=== PATIENT | female | born 1985 | race Caucasian/White ===

== ENCOUNTER → 2017-07-30 | Outpatient (CLI) | payer OTHER ==
--- NOTE | 2017-07-30 10:35 | NM ---
EXAMINATION TYPE: NM hepatobiliary w EF DATE OF EXAM: 07/30/2017 COMPARISON: NONE HISTORY: Right lower quadrant pain TECHNIQUE: After the intravenous administration of 5.01 mCi Tc 99m Mebrofenin hepatobiliary scintigra phy is performed. Immediate images post injection. FINDINGS: There is satisfactory initial accumulation of tracer by the liver. The gallbladder is visualized wit hin 4 minutes. The small bowel activity is noted within 34 minutes. At one hour 8 ounces of oral en sure plus is given to mimic CCK and gallbladder ejection fraction is calculated at 46 %, in the raf l range. Therefore there is no scintigraphic evidence of cystic or common bile duct obstruction to s uggest acute cholecystitis or gallbladder dyskinesia. IMPRESSION: Exam is within normal limits.
== END | disposition home or self-care (01) ==
LOC: RADNMMAIN 06:33
PROVIDERS: ATTEND Family Medicine
DX: R10.31 Right lower quadrant pain (principal)
CPT/HCPCS: 78226; A9537

== ENCOUNTER 2020-10-16 09:44 | Emergency (ER) | payer OTHER ==
[2020-10-16 10:04] VITALS: BP 136/89; PULSE 84; RESP 18; TEMP 98.1
--- NOTE | 2020-10-16 10:33 | ED ---
Animal Bite HPI - General Chief Complaint: Animal Bite Stated Complaint: cat bite Time Seen by Provider: 10/16/20 10:26 Source: patient, family Mode of arrival: ambulatory Limitations: no limitations - History of Present Illness Initial Comments: Patient is a 35-year-old female presenting to the emergency department with complaints of cat bite wound to her left ankle. She states this happened about 1 week ago, over the past few days she's had some swelling and some drainage to the area. She did contact her primary care physician's office but cannot get in until next week. She denies any fevers or chills, no nausea or vomiting. She wanted to come in for evaluation. She is no further complaints. - Related Data Home Medications Medication Instructions Recorded Confirmed Spironolactone 50 mg PO DAILY 09/21/15 09/21/15 metFORMIN HCL [Metformin HCl ER] 500 mg PO DAILY 09/21/15 09/21/15 Previous Rx's Medication Instructions Recorded Permethrin 5% Cream [Elimite] 1 applic TOPICAL ONCE #60 cream..g. 09/21/15 methylPREDNISolone [Medrol Dose 4 mg PO DIRECTED #1 pack 09/21/15 Pack] Cephalexin [Keflex] 500 mg PO Q6HR 5 Days #20 cap 10/16/20 Allergies Allergy/AdvReac Type Severity Reaction Status Date / Time No Known Allergies Allergy Verified 10/16/20 10:03 Review of Systems ROS Statement: Those systems with pertinent positive or pertinent negative responses have been documented in the HPI. ROS Other: All systems not noted in ROS Statement are negative. Past Medical History Past Medical History: No Reported History Additional Past Medical History / Comment(s): POLYCYSTIC OVARIAN DISEASE History of Any Multi-Drug Resistant Organisms: None Reported Past Surgical History: No Surgical Hx Reported Past Psychological History: Depression Smoking Status: Current every day smoker Past Alcohol Use History: Rare Past Drug Use History: None Reported General Exam - General Exam Comments Initial Comments: GENERAL: Patient is well-developed and well-nourished. Patient is nontoxic and in no acute distress. HEAD: Atraumatic, normocephalic. EYES: Pupils equal round and reactive to light, extraocular movements intact, sclera anicteric, conjunctiva are normal. Eyelids were unremarkable. LUNGS: Unlabored respirations. Breath sounds clear to auscultation bilaterally and equal. No wheezes rales or rhonchi. HEART: Regular rate and rhythm without murmurs, rubs or gallops. ABDOMEN: Soft, nontender, normoactive bowel sounds. MUSCULOSKELETAL: Normal extremities with adequate strength and normal range of motion, no pitting or edema. No clubbing or cyanosis. NEUROLOGICAL: Patient is alert and oriented x 3. SKIN: Warm, Dry, normal turgor. Patient has 2 single puncture wounds to the left lower ankle from cat bite, there is some mild erythema and tenderness to the area, there is some mild drainage as well, no spreading erythema. Limitations: no limitations Course Vital Signs 10/16/20 09:59 Temperature 98.1 F Pulse Rate 84 Respiratory 18 Rate Blood Pressure 136/89 O2 Sat by Pulse 98 Oximetry Medical Decision Making - Medical Decision Making Patient is a 35-year-old female here with 2 Bite wound on her left lower ankle that happened 1 week ago. It is mild erythematous, painful, some mild drainage. No fevers, no nausea or vomiting, her vitals are stable. I will start her on antibiotics. She can follow-up with her primary care physician. She is agreeable to this plan of care, return parameters were discussed with her and she verbalized understanding. Case discussed with Dr. Greene. Disposition Clinical Impression: Cat bite of left ankle Disposition: HOME SELF-CARE Condition: Stable Instructions (If sedation given, give patient instructions): Animal Bite (ED) Additional Instructions: Please return to the Emergency Department if symptoms worsen or any other concerns. Take antibiotics as prescribed. Follow-up with your primary care physician as needed. Prescriptions: Cephalexin [Keflex] 500 mg PO Q6HR 5 Days #20 cap Is patient prescribed a controlled substance at d/c from ED?: No Referrals: Ike Lala MD [Primary Care Provider] - 1-2 days Time of Disposition: 10:32
== END 2020-10-16 11:05 | disposition home or self-care (01) ==
LOC: EC 09:44
DX: S91.032A Puncture wound without foreign body, left ankle, initial encounter (principal); F32.9 Major depressive disorder, single episode, unspecified; E28.2 Polycystic ovarian syndrome; F17.200 Nicotine dependence, unspecified, uncomplicated; W55.01XA Bitten by cat, initial encounter
CPT/HCPCS: 99283

== ENCOUNTER → 2022-01-22 | Outpatient (CLI) | payer OTHER ==
--- NOTE | 2022-01-22 12:53 | MR ---
EXAMINATION TYPE: MR lumbar spine wo con DATE OF EXAM: 01/22/2022 COMPARISON: None HISTORY: Low back pain TECHNIQUE: Multiplanar, multisequence images of the lumbar spine were acquired without IV contrast. L1-L2: Normal disc appearance without desiccation. No herniation, protrusion or disc bulging. No ca nal stenosis is present. Foramina are patent bilaterally. L2-L3: Normal disc appearance without desiccation. No herniation, protrusion or disc bulging. No ca nal stenosis is present. Foramina are patent bilaterally. L3-L4: Posterior broad-based disc bulge causes anterior mass effect on the thecal sac in the central, right paracentral location. Circumferential extension endplate causes some foraminal encroachment in ferior aspect of the foramen on the right. No significant spinal stenosis. L4-L5: Posterior disc herniation is present central, left paracentral location causing mass effect on the thecal sac. There is facet arthropathy noted. Circumferential extension of endplate disc complex encroaches on the inferior aspect of the neural foramen on the right. There is mild to moderate spin al stenosis. Vacuum disc phenomenon is present. L5-S1: Circumferential extension endplate disc complex causes bilateral foraminal encroachment. Poste rior broad-based disc bulge contacts the anterior thecal sac, possibly the S1 nerve roots. There is f acet arthropathy with hypertrophy ligamentum flavum. No significant spinal stenosis. Vacuum disc phen omenon is present. Lumbar segments are intact. No paraspinal masses are identified. Conus medullaris has a normal appe arance. Loss of disc height and signal is present at L3-4, L4-5 and L5-S1, there is mitral listhesis and endplate discogenic marrow signal change. Redundancy of the nerve roots is noted distal to the L4 -5 level. Lumbar vertebral bodies show preserved height and alignment. IMPRESSION: Degenerative disc disease as described, disc herniation at L4-5 causes some spinal stenosis
== END | disposition home or self-care (01) ==
LOC: RADMRIMAIN 10:15
PROVIDERS: ATTEND Physician Assistant
DX: M51.16 Intervertebral disc disorders with radiculopathy, lumbar region (principal); M48.061 Spinal stenosis, lumbar region without neurogenic claudication
CPT/HCPCS: 72148

== ENCOUNTER → 2022-02-24 | Outpatient (CLI) | payer OTHER ==
[2022-02-24 08:34] VITALS: BP 124/70; PULSE 91; RESP 18; TEMP 98.6
--- NOTE | 2022-02-24 15:32 | P.PAINPG ---
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 Pt states pain level is at 7/10 in intensity, constant, localized in the lower lumbar spine, achy in character w shooting pain towards the BLEs. Pain is provoked by standing, bending, twisting Pain is alleviated by PT in 2020, home exercise regimen daily, alternates heat & ice, medications (Flexeril, Neurontin), reclining, repositioning and rest. PMH: PCOS, MDD, HTN, CAD, NIDDM, Hypothyroidism PSH: Denies SH: Daily tobacco use, Rare ETOH use, No illicit drug use. FH: Non contributory All: NKDA Meds: See list REVIEW OF ORGAN SYSTEMS: CONSTITUTIONAL: No fevers or chills. No recent weight loss. NEUROLOGICAL: + numbness and tingling along the distal extremities. No seizure disorders or headaches. MUSCULOSKELETAL: + pain PSYCHIATRIC: Denies current depression or suicidal thoughts. Physical Examinations : Constitutional : Cooperative , not in acute distress . Neurologic : Cranial nerve II to XII intact. No focal neurological deficits. Psychiatric : alert & oriented x 3. Matching mood & appropriate affect. Judgment & insight intact. Musculoskeletal : Cervical Spine Motor strength in the deltoid and biceps: Normal right side. Normal Left side Motor strength biceps and the wrist extensors: Normal right side . Normal left side Motor strength in the triceps muscle: Normal right side. Normal left side Deep tendon reflexes: Normal at the biceps. Normal at Brachioradialis. Normal at triceps Vertebral body tenderness to deep palpation over Cervical facet loading test: positive bilaterally Spurling test: positive bilaterally Neck distraction test: positive bilaterally Barron sign: positive bilaterally Lumbar spine Motor strength lower extremities ,thigh and legs 5/5 Right side , 5/5 Left side Deep tendon reflexes : Normal Knee Jerk. Normal Ankle Jerk Vertebral body tenderness over L4 Lumbar facet Loading Test: positive Right / positive Left Range of motion of the lumbar spine Flexion 30 degrees, extension 10 degrees Straight Leg Raise test: Left/ Right positive at degree Ileana test: positive right / positive left. Severe tenderness over the Sacroiliac joint on the Right / Left sides Gaenslen test: positive bilaterally Seated flexion test: positive bilaterally. Sacral spine : Severe tenderness over the Sacroiliac joint: right side / left side Range of motion: Flexion of the lumbar spine <60 degrees Range of motion: Extension of the lumbar spine <20 degrees Gaenslen's Test positive Chi's Test positive Ileana test: positive right side / left side Thigh Thrust Test Sacral Thrust Test Imaging: MRI without contrast of the lumbar spine from 01/22/22 reviewed Assessment/ Plan : Lumbar disc bulge, lumbar spondylolisthesis Recommendation of L Paramedian TAMMY L4-L5. May need a series of injections, up to 3 within a 6 mo period, for optimal pain relief. Risks, benefits of procedure discussed and patient verbalized understanding. Admits to aspirin or anti- coagulant use or medical history of diabetes. Protocol for discontinuation/ continuation of medications sveta procedure discussed. All questions answered. I have spent greater than 30 minutes on patient care today. Dr Gayle was available by phone for the evaluation of this patient. The time was used to review the medical records including relevant urine studies and Prescription history (MAPs), review of the available imaging, evaluation and examination of the patient, coordination of care with the medical staff and if applicable referring physicians, as well as creation of the medical record - Pain Location Lower Back Non-Pharmacological Interventions: Heat, Home Exercise, Ice, Inactivity, Physical Therapy, Position/Reposition, Stretching Pharmacological Interventions: PRN Medication, Scheduled Medication PQRS Narrative: Smoking Status Current every day smoker Home Medications: Ambulatory Orders Spironolactone 50 mg PO DAILY 09/21/15 metFORMIN HCL [Metformin HCl ER] 500 mg PO DAILY 09/21/15 Cyclobenzaprine [Flexeril] 10 mg PO HS 02/24/22 Gabapentin 600 mg PO BID 02/24/22 Levothyroxine Sodium [Synthroid] 50 mcg PO DAILY 02/24/22 Omeprazole [PriLOSEC] 40 mg PO DAILY 02/24/22 QUEtiapine [SEROquel] 50 mg PO HS 02/24/22 lisinopriL [Prinivil] 20 mg PO DAILY 02/24/22 norgestimate-ethinyl estradioL [Beverley 0.25-0.035 mg Tablet] 1 each PO DAILY 02/24/22 Controlled Substance Measures - Controlled Substance Measures Is patient prescribed a controlled substance at discharge?: No
== END ==
LOC: PNWHC3 07:20
PROVIDERS: ATTEND Specialist
DX: M43.16 Spondylolisthesis, lumbar region (principal); Z79.01 Long term (current) use of anticoagulants; E11.9 Type 2 diabetes mellitus without complications; Z79.84 Long term (current) use of oral hypoglycemic drugs; F17.200 Nicotine dependence, unspecified, uncomplicated
CPT/HCPCS: 99211

== ENCOUNTER 2023-02-02 06:17 | Day surgery (SDC) | payer OTHER ==
[2023-01-29 13:02] VITALS: BMI 41.6
[~2023-02-02 06:17] MED LIST: LACTATED RINGERS 1,000 ML IV SCH
[2023-02-02] MEDS ORDERED: MIDAZOLAM 2 MG/2 ML VIAL IVP ONE (06:56)
[2023-02-02] MEDS ORDERED: INSULIN ASPART (NovoLOG) 100 UNIT/ML VIAL SQ ONE (06:56)
[2023-02-02 07:01] LABS: Glucose,Whole Blood 350 mg/dL (70-110)
[2023-02-02 07:02] VITALS: TEMP 97
[2023-02-02] MEDS ORDERED: LIDOCAINE 1% INJ 10MG/ML (20 ML MDV) ONE (07:05)
[2023-02-02] MEDS ORDERED: PROPOFOL 10 MG/ML 20 ML VIAL IV ONE (07:05)
--- NOTE | 2023-02-02 07:11 | P.GSHP ---
History of Present Illness H&P Date: 02/02/23 CHIEF COMPLAINT: GERD HISTORY OF PRESENT ILLNESS: The patient is a 37-year-old female who presents reports gastroesophageal reflux disease. Upper endoscopy was offered for further evaluation and management. PAST MEDICAL HISTORY: Please see list. PAST SURGICAL HISTORY: Please see list. MEDICATIONS: Please see list. ALLERGIES: Please see list. SOCIAL HISTORY: No illicit drug use FAMILY HISTORY: No reports of Crohn disease or ulcerative colitis. REVIEW OF ORGAN SYSTEMS: CONSTITUTIONAL: No reports of fevers or chills. GI: Denies any blood in stools or constipation. PHYSICAL EXAM: VITAL SIGNS: Stable GENERAL: Well-developed and pleasant in no acute distress. HEENT: No scleral icterus. Extraocular movements grossly intact. Moist buccal mucosa. NECK: Supple without lymphadenopathy. CHEST: Unlabored respirations. Equal bilateral excursions. CARDIOVASCULAR: Regular rate and rhythm. Distal 2+ pulses. ABDOMEN: Soft, nondistended. MUSCULOSKELETAL: No clubbing, cyanosis, or edema. ASSESSMENT: 1. Gastroesophageal reflux disease PLAN: 1. Recommend proceeding with an upper endoscopy Past Medical History Past Medical History: Diabetes Mellitus, GERD/Reflux, Hyperlipidemia, Hypertension, Thyroid Disorder Additional Past Medical History / Comment(s): POLYCYSTIC OVARIAN DISEASE. herniated discs. SOB with activity. History of Any Multi-Drug Resistant Organisms: None Reported Past Surgical History: No Surgical Hx Reported Past Anesthesia/Blood Transfusion Reactions: No Reported Reaction Additional Past Anesthesia/Blood Transfusion Reaction / Comment(s): Has never had anesthesia. NO BLOOD TRANSFUSIONS Past Psychological History: Depression Additional Psychological History / Comment(s): . Smoking Status: Current every day smoker Past Alcohol Use History: Rare Additional Past Alcohol Use History / Comment(s): Smokes 1 1/2ppd since age late 20s started at 18yrs Past Drug Use History: Marijuana Additional Drug Use History / Comment(s): Marijuana use daily. Aware no use 24 hrs prior to procedure. - Past Family History Father Family Medical History: No Reported History Medications and Allergies Home Medications Medication Instructions Recorded Confirmed Type Spironolactone 100 mg PO BID 09/21/15 02/02/23 History metFORMIN HCL [Metformin HCl ER] 500 mg PO TID 09/21/15 02/02/23 History Cyclobenzaprine [Flexeril] 10 mg PO BID 02/24/22 02/02/23 History Gabapentin 400 mg PO BID 02/24/22 02/02/23 History Levothyroxine Sodium [Synthroid] 50 mcg PO DAILY 02/24/22 02/02/23 History Omeprazole [PriLOSEC] 40 mg PO BID 02/24/22 02/02/23 History norgestimate-ethinyl estradioL 1 each PO DAILY 02/24/22 02/02/23 History [Beverley 0.25-0.035 mg Tablet] Ergocalciferol [Vitamin D2 (1250 50,000 unit PO Q30D 10/22/22 02/02/23 History Mcg = 80699 Iu)] Fluticasone Propion/Salmeterol 1 puff INHALATION BID 01/29/23 02/02/23 History [Advair Hfa 115-21 Mcg Inhaler] OLANZapine [ZyPREXA] 15 mg PO HS 01/29/23 02/02/23 History Semaglutide [Ozempic] 0.25 mg SQ Q7D 01/29/23 02/02/23 History lisinopriL 40 mg PO DAILY 01/29/23 02/02/23 History oxyCODONE HCL/ACETAMINOPHEN 1 tab PO TID PRN 01/29/23 02/02/23 History [oxyCODONE HCL/ACETAMINOPHEN 7.5-325] Allergies Allergy/AdvReac Type Severity Reaction Status Date / Time No Known Allergies Allergy Verified 02/02/23 06:21 Surgical - Exam Vital Signs Temp Pulse Resp BP Pulse Ox 97 F L 121 H 18 137/82 93 L 02/02/23 06:41 02/02/23 06:41 02/02/23 06:41 02/02/23 06:41 02/02/23 06:41 Results - Labs Abnormal Lab Results - Last 24 Hours (Table) 02/02/23 Range/Units 06:51 POC Glucose (mg/dL) 350 H (70-110) mg/dL
[2023-02-02 07:26] VITALS: RESP 16
--- NOTE | 2023-02-02 07:31 | P.GSHP ---
History of Present Illness H&P Date: 02/02/23 PREOPERATIVE DIAGNOSIS: Gastroesophageal reflux disease. Morbid obesity due to excess calories POSTOPERATIVE DIAGNOSIS: Gastroesophageal reflux disease with erosive esophagitis Morbid obesity due to excess calories Gastritis and bleeding OPERATION: Esophagogastroduodenoscopy with biopsies along esophagus, antrum and duodenum SURGEON: Charo Guillen MD ANESTHESIA: MAC. INDICATIONS: The patient is a 37-year-old female who presents with reflux disease. Benefits and risks of the procedure were described. Informed consent was obtained. DESCRIPTION: The patient was brought into the endoscopy suite and laid in the left lateral decubitus position. An Olympus gastroscope was passed along the posterior oropharynx down to the distal esophagus where the squamocolumnar junction was encountered at 37 cm from the incisors. The stomach was entered and bile reflux was found. Additional findings are listed below. Biopsies with cold forceps were obtained of the antrum. The first through third portion of the duodenum was examined. Retroflexion of the scope confirmed Hill grade 2 lower esophageal valve. The squamocolumnar junction demonstrated LA grade B erosive esophagitis. The stomach was desufflated. The patient tolerated the procedure well. FINDINGS: Squamocolumnar junction 37 cm from the incisors. Diaphragmatic hiatus at 37 cm. Hill grade 2 lower esophageal valve. LA grade C erosive esophagitis. Biopsies obtained of the duodenum and esophagus Chronic gastritis with biopsies obtained. RECOMMENDATIONS: Upper endoscopy as needed. Begin Omeprazole 40 mg daily Past Medical History Past Medical History: Diabetes Mellitus, GERD/Reflux, Hyperlipidemia, Hypertension, Thyroid Disorder Additional Past Medical History / Comment(s): POLYCYSTIC OVARIAN DISEASE. herniated discs. SOB with activity. History of Any Multi-Drug Resistant Organisms: None Reported Past Surgical History: No Surgical Hx Reported Past Anesthesia/Blood Transfusion Reactions: No Reported Reaction Additional Past Anesthesia/Blood Transfusion Reaction / Comment(s): Has never had anesthesia. NO BLOOD TRANSFUSIONS Past Psychological History: Depression Additional Psychological History / Comment(s): . Smoking Status: Current every day smoker Past Alcohol Use History: Rare Additional Past Alcohol Use History / Comment(s): Smokes 1 1/2ppd since age late 20s started at 18yrs Past Drug Use History: Marijuana Additional Drug Use History / Comment(s): Marijuana use daily. Aware no use 24 hrs prior to procedure. - Past Family History Father Family Medical History: No Reported History Medications and Allergies Home Medications Medication Instructions Recorded Confirmed Type Spironolactone 100 mg PO BID 09/21/15 02/02/23 History metFORMIN HCL [metFORMIN HCL ER] 500 mg PO TID 09/21/15 02/02/23 History Cyclobenzaprine [Flexeril] 10 mg PO BID 02/24/22 02/02/23 History Gabapentin 400 mg PO BID 02/24/22 02/02/23 History Levothyroxine Sodium [Synthroid] 50 mcg PO DAILY 02/24/22 02/02/23 History Omeprazole [PriLOSEC] 40 mg PO BID 02/24/22 02/02/23 History norgestimate-ethinyl estradioL 1 each PO DAILY 02/24/22 02/02/23 History [Beverley 0.25-0.035 mg Tablet] Ergocalciferol [Vitamin D2 (1250 50,000 unit PO Q30D 10/22/22 02/02/23 History Mcg = 22903 Iu)] Fluticasone Propion/Salmeterol 1 puff INHALATION BID 01/29/23 02/02/23 History [Advair Hfa 115-21 Mcg Inhaler] OLANZapine [ZyPREXA] 15 mg PO HS 01/29/23 02/02/23 History Semaglutide [Ozempic] 0.25 mg SQ Q7D 01/29/23 02/02/23 History lisinopriL 40 mg PO DAILY 01/29/23 02/02/23 History oxyCODONE HCL/ACETAMINOPHEN 1 tab PO TID PRN 01/29/23 02/02/23 History [oxyCODONE HCL/ACETAMINOPHEN 7.5-325] Allergies Allergy/AdvReac Type Severity Reaction Status Date / Time No Known Allergies Allergy Verified 02/02/23 06:21 Surgical - Exam Vital Signs Temp Pulse Resp BP Pulse Ox 97 F L 121 H 18 137/82 93 L 02/02/23 06:41 02/02/23 06:41 02/02/23 06:41 02/02/23 06:41 02/02/23 06:41 Results - Labs Abnormal Lab Results - Last 24 Hours (Table) 02/02/23 Range/Units 06:51 POC Glucose (mg/dL) 350 H (70-110) mg/dL
--- NOTE | 2023-02-02 07:31 | P.PCN ---
Date of Procedure: 02/02/23 Description of Procedure: PREOPERATIVE DIAGNOSIS: Gastroesophageal reflux disease. Morbid obesity due to excess calories POSTOPERATIVE DIAGNOSIS: Gastroesophageal reflux disease with erosive esophagitis Morbid obesity due to excess calories Gastritis and bleeding OPERATION: Esophagogastroduodenoscopy with biopsies along esophagus, antrum and duodenum SURGEON: Charo Guillen MD ANESTHESIA: MAC. INDICATIONS: The patient is a 37-year-old female who presents with reflux disease. Benefits and risks of the procedure were described. Informed consent was obtained. DESCRIPTION: The patient was brought into the endoscopy suite and laid in the left lateral decubitus position. An Olympus gastroscope was passed along the posterior oropharynx down to the distal esophagus where the squamocolumnar junction was encountered at 37 cm from the incisors. The stomach was entered and bile reflux was found. Additional findings are listed below. Biopsies with cold forceps were obtained of the antrum. The first through third portion of the duodenum was examined. Retroflexion of the scope confirmed Hill grade 2 lower esophageal valve. The squamocolumnar junction demonstrated LA grade B erosive esophagitis. The stomach was desufflated. The patient tolerated the procedure well. FINDINGS: Squamocolumnar junction 37 cm from the incisors. Diaphragmatic hiatus at 37 cm. Hill grade 2 lower esophageal valve. LA grade C erosive esophagitis. Biopsies obtained of the duodenum and esophagus Chronic gastritis with biopsies obtained. RECOMMENDATIONS: Upper endoscopy as needed. Begin Omeprazole 40 mg daily Plan - Discharge Summary Discharge Rx Participant: No New Discharge Prescriptions: Continue Spironolactone 100 mg PO BID metFORMIN HCL [metFORMIN HCL ER] 500 mg PO TID Gabapentin 400 mg PO BID Omeprazole [PriLOSEC] 40 mg PO BID Ergocalciferol [Vitamin D2 (1250 Mcg = 91551 Iu)] 50,000 unit PO Q30D oxyCODONE HCL/ACETAMINOPHEN [oxyCODONE HCL/ACETAMINOPHEN 7.5-325] 1 tab PO TID PRN PRN Reason: Pain Levothyroxine Sodium [Synthroid] 50 mcg PO DAILY Cyclobenzaprine [Flexeril] 10 mg PO BID norgestimate-ethinyl estradioL [Beverley 0.25-0.035 mg Tablet] 1 each PO DAILY Fluticasone Propion/Salmeterol [Advair Hfa 115-21 Mcg Inhaler] 1 puff INHALATION BID lisinopriL 40 mg PO DAILY OLANZapine [ZyPREXA] 15 mg PO HS Semaglutide [Ozempic] 0.25 mg SQ Q7D Discharge Medication List Spironolactone 100 mg PO BID 09/21/15 [History] metFORMIN HCL [metFORMIN HCL ER] 500 mg PO TID 09/21/15 [History] Cyclobenzaprine [Flexeril] 10 mg PO BID 02/24/22 [History] Gabapentin 400 mg PO BID 02/24/22 [History] Levothyroxine Sodium [Synthroid] 50 mcg PO DAILY 02/24/22 [History] Omeprazole [PriLOSEC] 40 mg PO BID 02/24/22 [History] norgestimate-ethinyl estradioL [Beverley 0.25-0.035 mg Tablet] 1 each PO DAILY 02/24/22 [History] Ergocalciferol [Vitamin D2 (1250 Mcg = 43985 Iu)] 50,000 unit PO Q30D 10/22/22 [History] Fluticasone Propion/Salmeterol [Advair Hfa 115-21 Mcg Inhaler] 1 puff INHALATION BID 01/29/23 [History] OLANZapine [ZyPREXA] 15 mg PO HS 01/29/23 [History] Semaglutide [Ozempic] 0.25 mg SQ Q7D 01/29/23 [History] lisinopriL 40 mg PO DAILY 01/29/23 [History] oxyCODONE HCL/ACETAMINOPHEN [oxyCODONE HCL/ACETAMINOPHEN 7.5-325] 1 tab PO TID PRN 01/29/23 [History] [facility] [place] [place] [facility] [place] [facility]23 Patient Instructions/Handouts: GERD (Gastroesophageal Reflux Disease) (ED) Discharge Disposition: HOME SELF-CARE
[2023-02-02 07:49] VITALS: BP 127/69; PULSE 96
[2023-02-02 08:05] LABS: Glucose,Whole Blood 341 mg/dL (70-110)
== END 2023-02-02 08:21 | disposition home or self-care (01) ==
LOC: ORWHC2ENDO 06:17
PROVIDERS: ATTEND Surgery Plastic and Reconstructive Surgery
DX: K29.50 Unspecified chronic gastritis without bleeding (principal); K21.00 Gastro-esophageal reflux disease with esophagitis, without bleeding; K29.70 Gastritis, unspecified, without bleeding; I10 Essential (primary) hypertension; E78.5 Hyperlipidemia, unspecified; E66.01 Morbid (severe) obesity due to excess calories; E28.2 Polycystic ovarian syndrome; F12.90 Cannabis use, unspecified, uncomplicated; F10.90 Alcohol use, unspecified, uncomplicated; F32.A Depression, unspecified; E11.9 Type 2 diabetes mellitus without complications; F17.210 Nicotine dependence, cigarettes, uncomplicated; Z79.899 Other long term (current) drug therapy; Z79.890 Hormone replacement therapy; Z79.84 Long term (current) use of oral hypoglycemic drugs
CPT/HCPCS: 88305; 43239; J2250; J2001; J2704

== ENCOUNTER → 2023-02-16 | Outpatient (CLI) | payer OTHER ==
[2023-02-16 12:21] LABS: INR 0.9 (<1.2); Partial Thromboplastin Time 25.2 sec (22.0-30.0); Prothrombin Time 10.3 sec (10.0-12.5)
[2023-02-16 15:29] LABS: HCT 47.3 % (37.2-46.3); MCH 29.4 pg (27.0-32.0); MCHC 33.8 g/dL (32.0-37.0); MCV 86.9 FL (80.0-97.0); Mean Platelet Volume 11.6 FL (9.5-12.2); NRBC Per 100 WBC 0 X 10*3/uL (0.00-0.01); Platelet Count 260 X 10*3/uL (140-440); RBC 5.44 X 10*6/uL (4.10-5.20); RDW 13.2 % (11.5-14.5); WBC 10.03 X 10*3/uL (4.50-10.00)
[2023-02-16 17:29] LABS: % Iron Saturation 16.89 (12.00-45.00); ALT 142 U/L (8-44); AST 92 U/L (13-35); Albumin 4.6 g/dL (3.8-4.9); Albumin/Globulin Ratio 1.53 Ratio (1.60-3.17); Alkaline Phosphatase 135 U/L (41-126); BUN/Creat Ratio 13.29 Ratio (12.00-20.00); Blood Urea Nitrogen 9.3 mg/dL (9.0-27.0); Calcium 10.4 mg/dL (8.7-10.3); Carbon Dioxide 18.6 mmol/L (21.6-31.8); Chloride 98 mmol/L (96-109); Chol/HDL Ratio 5.74 Ratio; Glucose 245 mg/dL (70-110); Iron 87 UG/DL (50-170); Magnesium 1.8 mg/dL (1.5-2.4); Phosphorus 3.8 mg/dL (2.4-5.1); Potassium 4.7 mmol/L (3.5-5.5); Sodium 132 mmol/L (135-145); Total Bilirubin 0.4 mg/dL (0.3-1.2); Total Iron Binding Capacity 515 UG/DL (228-460); Total Protein 7.6 g/dL (6.2-8.2)
[2023-02-16 18:05] LABS: Prealbumin 21.4 mg/dL (18.0-42.0)
[2023-02-17 10:42] LABS: Zinc, Serum 88 ug/dL (60-130)
[2023-02-18 08:00] LABS: Vitamin A 54 ug/dL (38-106)
== END | disposition home or self-care (01) ==
LOC: LABWHC1 10:22
PROVIDERS: ATTEND Surgery Plastic and Reconstructive Surgery
DX: E66.01 Morbid (severe) obesity due to excess calories (principal); D50.8 Other iron deficiency anemias; E89.1 Postprocedural hypoinsulinemia; K91.2 Postsurgical malabsorption, not elsewhere classified; E44.0 Moderate protein-calorie malnutrition; E44.1 Mild protein-calorie malnutrition; E45 Retarded development following protein-calorie malnutrition; E55.9 Vitamin D deficiency, unspecified; K74.1 Hepatic sclerosis; N19 Unspecified kidney failure; T56.894A Toxic effect of other metals, undetermined, initial encounter; K50.90 Crohn's disease, unspecified, without complications
CPT/HCPCS: 36415; 80053; 80061; 82306; 82525; 82607; 82728; 82746; 83036; 83540; 83550; 83721; 83735; 83970; 84100; 84134; 84255; 84425; 84443; 84590; 84630; 85027; 85610; 85730

== ENCOUNTER → 2024-06-15 | Outpatient (CLI) | payer OTHER ==
--- NOTE | 2024-06-15 10:38 | P.HPBAR ---
Bariatric H&P - History & Physicial H&P Date: 06/15/24 History & Physicial: Visit/CC: Patient initial contact: Initial weight: Initial weight in pounds: Height: Initial BMI: Last weight: Current weight: Current weight in pounds: Current BMI: [place] body weight (based on NIH guidelines): Excess body weight loss: The patient is a 38 year-old F who presents for Bariatric Assessment. Patient presents with severe reflux disease despite high-dose omeprazole 40 mg twice daily without relief. She is a smoker. Patient is also comes in morbid obesity. Additionally she has multiple family members with gallbladder disease in her sister including mother. Patient has not had recent gallbladder workup. Symptoms are worse. She reports she will be on spring break next week. Stat ultrasound including HIDA scan advised. Upper endoscopy at the time of cholecystectomy advised due to severe disease. Tobacco smoking cessation counseling performed. Patient seeking gastric bypass. Will reassess following bowel bladder surgery including quit tobacco. DATE OF SERVICE: 06/15/2024 REASON FOR CONSULTATION: Initial bariatric evaluation. HISTORY OF PRESENT ILLNESS: Quynh Blount is a 46-year-old female who comes with lifelong morbid obesity. She comes in looking into the sleeve gastrectomy. Her gallbladder is out. She takes Omeprazole as needed for gastroesophageal reflux disease. She has a family with obesity. She does family support. She has history of pyloric stenosis as a child and needed a stretch as least 3 times of her esophagus and stomach. No reports of active chest pain. No reports of active nausea or vomiting. She has undergone medical supervised weight loss over 6 months with some success. She has developed hypertensive heart disease, hyperlipidemia as a result of her morbid obesity. Now she is looking into permanent options for weight loss. At height of 5 feet 3.75 inches, her ideal body weight is 140 pounds. She comes in 219 pounds. Her body mass index is 38.0. She is 79 pounds overweight. PAST MEDICAL HISTORY: 1. Morbid obesity due to excess calories 2. Body mass index of 38.0, initial 3. Osteoarthritis of the knees. 4. Osteoarthritis of the lower back. 5. Hypertensive heart disease. 6. Gastroesophageal reflux disease 7. Hyperlipidemia 8. Obstructive sleep apnea 9. Diabetes type 2, insulin dependent 10. Chronic obstructive pulmonary disease 11. Glaucoma 12. Neuropathy 13. Asthma 14. Atrial fibrillation PAST SURGICAL HISTORY: 1. Back surgery 2. Hysterectomy 3. Tonsillectomy 4. Rotator cuff surgery 5. Cholecystectomy HOME MEDICATIONS: ALLERGIES: SOCIAL HISTORY: Past tobacco use. FAMILY HISTORY: No family history of ulcerative colitis disease or Crohn's disease. Family history of morbid obesity. No lupus in the family. No reports of stomach or esophageal cancer. REVIEW OF ORGAN SYSTEMS: CONSTITUTIONAL: HEENT: Denies any active troubles with vision or hearing. Has troubles with swallowing. ENDOCRINE: Has diabetes. No hypothyroidism. CARDIOVASCULAR: Past reports of palpitations or heart attacks or chest pain. Has hypertensive heart disease. RESPIRATORY: Has daytime somnolence. Has asthma. Has chronic obstructive pulmonary disease. GASTROINTESTINAL: Denies any bright red blood per rectum. No diarrhea. No constipation. Has gastroesophageal reflux disease. GENITOURINARY: Has bladder urgency. No recent blood in urine MUSCULOSKELETAL: Has lower back pain and joint pain. Has osteoarthritis of the knees. History of bilateral lower extremity edema. NEURO: No headaches. No seizure disorders. Has neuropathy. PSYCH: Has depression. No suicidal ideation. RHEUMATOLOGIC: No lupus. No rheumatoid arthritis. HEMATOLOGIC: Denies any abnormal bleeding or bruising. Past history of DVTs. On blood thinners. SKIN: No rash. No skin cancer. PHYSICAL EXAM: VITAL SIGNS: Height 5 foot 3.75 inches, weight 219 pounds. BMI 38.0 GENERAL: Well-developed in no acute distress. HEENT: No scleral icterus. Extraocular movements grossly intact. Hears conversational speech. No nasal drainage. NECK: Supple without lymphadenopathy. CHEST: Nonlabored respirations with equal bilateral excursions. CARDIOVASCULAR: Regular rate and regular rhythm. Distal 2+ pulses. ABDOMEN: Obese, soft, nontender, nondistended. MUSCULOSKELETAL: No clubbing, cyanosis. Gross strength 5/5 distal lower extremities. NEURO: No focal or lateralizing signs. Cranial nerves 2 through 12 grossly wi thin normal limits. PSYCH: Appropriate affect. Alert and oriented to person, place and time. SKIN: Good skin turgor. Well perfused. ASSESSMENT: 1. Morbid obesity due to excess calories 2. Body mass index of 38.0, initial 3. Osteoarthritis of the knees. 4. Osteoarthritis of the lower back. 5. Hypertensive heart disease. 6. Gastroesophageal reflux disease 7. Hyperlipidemia 8. Obstructive sleep apnea 9. Diabetes type 2, insulin dependent 10. Chronic obstructive pulmonary disease 11. Glaucoma 12. Neuropathy 13. Asthma 14. Atrial fibrillation 15. Need for colonoscopy screening 16. Esophageal dysmotility PLAN: 1. Surgical options including a band, gastric bypass, sleeve gastrectomy were described in detail. Alternatives such as gastric balloon including duodenal switch were described. She is looking into the gastric bypass. 2. The [place] bariatric surgical collaborative data and outcomes calculator were described with surgical options. 3. Recommend a bariatric metabolic panel to evaluate for micro- including macronutrient deficiencies. 4. For history of daytime somnolence, recommend evaluation and treatment for sleep apnea. 5. Dietary surveillance and counseling was reviewed. Increased protein intake over 65 grams daily advised. 6. Will need cardiac risk assessment. 7. Recommend medical risk assessment. 8. Psych assessment per insurance guidelines. 9. Recommend upper endoscopy. 10. Recommend 12-lead EKG. 11. Recommend esophagram Thank you for this consultation. Past Medical History Past Medical History: Diabetes Mellitus, GERD/Reflux, Hyperlipidemia, Hypertension, Thyroid Disorder Additional Past Medical History / Comment(s): POLYCYSTIC OVARIAN DISEASE. herniated discs. SOB with activity. History of Any Multi-Drug Resistant Organisms: None Reported Past Surgical History: No Surgical Hx Reported Past Anesthesia/Blood Transfusion Reactions: No Reported Reaction Additional Past Anesthesia/Blood Transfusion Reaction / Comm: Has never had anesthesia. NO BLOOD TRANSFUSIONS Past Psychological History: Depression Additional Psychological History / Comment(s): . Smoking Status: Current every day smoker Past Alcohol Use History: Rare Additional Past Alcohol Use History / Comment(s): Smokes 1 1/2ppd since age late 20s started at 18yrs Past Drug Use History: Marijuana Additional Drug Use History / Comment(s): Marijuana use daily. Aware no use 24 hrs prior to procedure. - Past Family History Father Family Medical History: No Reported History Bariatric Checklist Checklist: Plan: Checklist: EGD: 1. Hiatal hernia: 2. H. Pylori: HgbA1c: Vitamin D: Smoking: Current every day smoker Primary care physician referral: NICKIE THOMPSON Psychiatry clearance: Cardiology clearance: Sleep study: Diet journal: VTE risk score: VTE risk level: Rehab needs at discharge:
[2024-06-15 10:40] VITALS: BP 148/92; PULSE 110; RESP 16; TEMP 98.3; BMI 44.4
== END ==
LOC: BARWHC3 09:35
PROVIDERS: ATTEND Surgery Plastic and Reconstructive Surgery
DX: E11.9 Type 2 diabetes mellitus without complications (principal); E66.01 Morbid (severe) obesity due to excess calories; M17.0 Bilateral primary osteoarthritis of knee; M47.818 Spondylosis without myelopathy or radiculopathy, sacral and sacrococcygeal region; I11.9 Hypertensive heart disease without heart failure; K21.9 Gastro-esophageal reflux disease without esophagitis; E78.5 Hyperlipidemia, unspecified; G47.33 Obstructive sleep apnea (adult) (pediatric); J44.9 Chronic obstructive pulmonary disease, unspecified; H40.9 Unspecified glaucoma; G62.9 Polyneuropathy, unspecified; J45.909 Unspecified asthma, uncomplicated; I48.91 Unspecified atrial fibrillation; K22.4 Dyskinesia of esophagus; F17.210 Nicotine dependence, cigarettes, uncomplicated; F12.90 Cannabis use, unspecified, uncomplicated; Z68.38 Body mass index [BMI] 38.0-38.9, adult
CPT/HCPCS: 99211

== ENCOUNTER → 2024-06-16 | Outpatient (CLI) | payer OTHER ==
--- NOTE | 2024-06-16 13:04 | US ---
EXAMINATION TYPE: US gallbladder DATE OF EXAM: 06/16/2024 COMPARISON: NONE CLINICAL INDICATION: Female, 38 years old with history of R10.11 RT UPPER QUADRANT PAIN; reflux, RUQ pain, patient pending bariatric surgery TECHNIQUE: Grayscale and color Doppler imaging of the right upper quadrant was performed. FINDINGS: EXAM MEASUREMENTS: Liver Length: 16.4 cm Gallbladder Wall: 0.2 cm CBD: 0.4 cm Right Kidney: 10.0 x 4.5 x 4.7 cm SHIP LOADER NOTES:habitus and bowel gas limits exam Pancreas: portion seen appears wnl Liver: difficult to penetrate with possible focal fatty Gallbladder: wnl Evidence for sonographic Moran's sign: no CBD: wnl Right Kidney: wnl IMPRESSION: Hepatic steatosis. [facility], , 06/16/2024 1:02 PM
== END | disposition home or self-care (01) ==
LOC: RADUSWWP 12:27
PROVIDERS: ATTEND Surgery Plastic and Reconstructive Surgery
DX: K76.0 Fatty (change of) liver, not elsewhere classified (principal); R10.11 Right upper quadrant pain
CPT/HCPCS: 76705

== ENCOUNTER → 2024-06-16 | Outpatient (CLI) | payer OTHER ==
[2024-06-16 13:39] LABS: INR 0.9 (<1.2); Partial Thromboplastin Time 22.9 sec (22.0-30.0); Prothrombin Time 10.1 sec (10.0-12.5)
[2024-06-16 14:31] LABS: Amphetamine Screen,Urine Not Detected (NotDetected); Barbiturate Screen,Urine Not Detected (NotDetected); Benzodiazepines Screen,Urine Not Detected (NotDetected); Cocaine Screen,Urine Not Detected (NotDetected); Methadone Screen, Urine Not Detected (NotDetected); Opiate Screen,Urine Detected (NotDetected); Oxycodone Screen, Urine Not Detected (NotDetected); Phencyclidine Screen,Urine Not Detected (NotDetected); Tricyclic Antidepressant,Urine Detected (NotDetected); Urn Cannabinoid Scrn Detected (NotDetected)
[2024-06-16 19:31] LABS: % Iron Saturation 20.42 (12.00-45.00); BUN/Creat Ratio 12.14 Ratio (12.00-20.00); Blood Urea Nitrogen 8.5 mg/dL (9.0-27.0); Chloride 104 mmol/L (96-109); Chol/HDL Ratio 5.13 Ratio; Glucose 107 mg/dL (70-110); Iron 106 UG/DL (50-170); LDL Cholesterol,Calculated 129.5 mg/dL (0.0-131.0); Magnesium 1.7 mg/dL (1.5-2.4); Potassium 4.4 mmol/L (3.5-5.5); Sodium 137 mmol/L (135-145); Total Iron Binding Capacity 519 UG/DL (228-460)
[2024-06-16 19:32] LABS: ALT 85 U/L (8-44); AST 60 U/L (13-35); Albumin 4.4 g/dL (3.8-4.9); Albumin/Globulin Ratio 1.47 Ratio (1.60-3.17); Alkaline Phosphatase 106 U/L (41-126); Calcium 9.9 mg/dL (8.7-10.3); Total Bilirubin 0.3 mg/dL (0.3-1.2); Total Protein 7.4 g/dL (6.2-8.2)
[2024-06-16 20:11] LABS: Prealbumin 24.4 mg/dL (18.0-42.0)
[2024-06-16 20:15] LABS: HCT 44.6 % (37.2-46.3); HGB 14.5 g/dL (12.0-15.0); MCH 28.8 pg (27.0-32.0); MCHC 32.5 g/dL (32.0-37.0); MCV 88.5 FL (80.0-97.0); Mean Platelet Volume 10.9 FL (9.5-12.2); NRBC Per 100 WBC 0 X 10*3/uL (0.00-0.01); Platelet Count 408 X 10*3/uL (140-440); RBC 5.04 X 10*6/uL (4.10-5.20); RDW 13.7 % (11.5-14.5); WBC 14.31 X 10*3/uL (4.50-10.00)
[2024-06-17 12:27] LABS: Zinc, Serum 61 ug/dL (60-130)
[2024-06-18 09:41] LABS: Anabasine Urine 7.5 ng/mL (<2.0)
== END | disposition home or self-care (01) ==
LOC: LABWHC1 12:53
PROVIDERS: ATTEND Surgery Plastic and Reconstructive Surgery
DX: E89.1 Postprocedural hypoinsulinemia (principal); E44.0 Moderate protein-calorie malnutrition; E45 Retarded development following protein-calorie malnutrition; E55.9 Vitamin D deficiency, unspecified; E66.01 Morbid (severe) obesity due to excess calories; D50.8 Other iron deficiency anemias; K74.1 Hepatic sclerosis; D50.9 Iron deficiency anemia, unspecified; N19 Unspecified kidney failure; K50.90 Crohn's disease, unspecified, without complications; T56.894A Toxic effect of other metals, undetermined, initial encounter
CPT/HCPCS: 84255; 84134; 84425; 80061; 80053; 82607; 82728; 82525; 82746; 83540; 83550; 83735; 84100; 84443; 84590; 84630; 85027; 85610; 85730; 82306; 80306; 83970; 83036; 93005; 36415; G0480; 80323

== ENCOUNTER → 2024-06-20 | Day surgery (SDC) | payer OTHER ==
[~2024-06-20] MED LIST changes: +GLYCOPYRROLATE 0.2 MG/ML 2 ML VIAL ONE; +HYDROmorphone (PF) 1 MG/ML ONE; +INDOCYANINE GREEN 25 MG VIAL IV STA; +KETOROLAC 15 MG/ML 1 ML VIAL ONE; -LACTATED RINGERS 1,000 ML IV SCH; +LIDOCAINE 1% INJ 10MG/ML (20 ML MDV) ONE; +LIDOCAINE 4% LTA KIT (4 ML) TOPICAL ONE; +MIDAZOLAM 2 MG/2 ML VIAL IV PRN; +NEOSTIGMINE 1 MG/ML 10 ML VIAL ONE; +PROPOFOL 10 MG/ML 20 ML VIAL IV ONE; +ROCURONIUM 10 MG/ML (5 ML VIAL) IV ONE; +SUCCINYLCHOLINE CHLORIDE 200 MG/10 ML VIAL IV ONE; +fentaNYL (PF) 50 MCG/ML 2 ML AMP ONE
--- NOTE | 2024-06-20 08:09 | P.GSHP ---
History of Present Illness H&P Date: 06/20/24 CHIEF COMPLAINT: Cholecystitis HISTORY OF PRESENT ILLNESS: The patient is a 38-year-old female who presents with history of epigastric including right upper quadrant abdominal pain. She underwent diagnostic studies for her gallbladder. Separately her clinical picture was consistent with cholecystitis. Additionally, patient presents with leukocytosis consistent with acute cholecystitis. Now she presents for surgical intervention. PAST MEDICAL HISTORY: Please see list PAST SURGICAL HISTORY: Please see list MEDICATIONS: Please see list ALLERGIES: Please see list SOCIAL HISTORY: Please see list FAMILY HISTORY: Please see list REVIEW OF ORGAN SYSTEMS: CONSTITUTIONAL: No reports of fevers or chills. HEENT: Denies any troubles with the vision or hearing. ENDOCRINE: No reports of hypothyroidism. No diabetes. RESPIRATORY: No recent pneumonias. CARDIOVASCULAR: Denies chest pain or palpitations GI: No blood in stools or constipation. MUSCULOSKELETAL: Has occasional joint pain including back pain. NEURO: No seizure disorders or headaches. No recent stroke. PSYCH: No depression or suicidal ideation. GENITOURINARY: No active blood in urine. No urinary hesitancy. HEMATOLOGIC: No personal or family history of DVTs or pulmonary emboli. SKIN: No skin cancer. PHYSICAL EXAM: VITAL SIGNS: Afebrile vital signs stable GENERAL: Well-developed pleasant in no acute distress. HEENT: No scleral icterus. Extraocular movements grossly intact. Moist buccal mucosa. NECK: Supple without lymphadenopathy. CHEST: Unlabored respirations. Equal bilateral excursions. CARDIOVASCULAR: Regular rate regular rhythm rhythm. Distal 2+ pulses. ABDOMEN: Soft, nondistended. Tender along the epigastrium and right upper quadrant. MUSCULOSKELETAL: No clubbing, cyanosis, or edema. NEURO: Cranial nerves II to XII within normal limits. No focal or lateralizing signs. PSYCH: Alert and oriented to person, place and time. SKIN: Well-perfused good skin turgor. ASSESSMENT: 1. Epigastric and right upper quadrant abdominal pain 2. Acute on chronic cholecystitis 3. Morbid obesity excess calories, BMI 44.0 4. Leukocytosis PLAN: 1. Will need a robotic cholecystectomy possible open. Benefits and risks were described. 2. Heparin for DVT prophylaxis 5000 units. 3. Antibiotic prophylaxis. 4. CBC and CMP on day of procedure due to new onset leukocytosis 5. Non-narcotic pre and post op pain management reviewed. 6. Indocyanine green for biliary imaging. Past Medical History Past Medical History: Diabetes Mellitus, GERD/Reflux, Hyperlipidemia, Hypertension, Thyroid Disorder Additional Past Medical History / Comment(s): POLYCYSTIC OVARIAN DISEASE. herniated discs. SOB with activity. History of Any Multi-Drug Resistant Organisms: None Reported Past Surgical History: No Surgical Hx Reported Additional Past Surgical History / Comment(s): EGD Past Anesthesia/Blood Transfusion Reactions: No Reported Reaction Additional Past Anesthesia/Blood Transfusion Reaction / Comment(s): NO BLOOD TRANSFUSIONS Smoking Status: Current every day smoker - Past Family History Father Family Medical History: No Reported History Medications and Allergies Home Medications Medication Instructions Recorded Confirmed Type Cyclobenzaprine [Flexeril] 10 mg PO BID 02/24/22 06/16/24 History Gabapentin 400 mg PO BID 02/24/22 06/16/24 History Levothyroxine Sodium [Synthroid] 50 mcg PO DAILY 02/24/22 06/16/24 History Omeprazole [PriLOSEC] 40 mg PO BID 02/24/22 06/16/24 History norgestimate-ethinyl estradioL 1 each PO DAILY 02/24/22 06/16/24 History [[place] 0.25-0.035 mg Tablet] OLANZapine [ZyPREXA] 15 mg PO HS 01/29/23 06/16/24 History lisinopriL 40 mg PO DAILY 01/29/23 06/16/24 History HYDROcodone/APAP 5-325MG [[place] 1 tab PO BID PRN 06/15/24 06/16/24 History 5-325] Tirzepatide [Mounjaro] 2.5 mg SQ GOMEZ 06/15/24 06/16/24 History hydroCHLOROthiazide [Hydrodiuril] 12.5 mg PO DAILY 06/16/24 06/16/24 History Ergocalciferol [Vitamin D2 (1250 50,000 unit PO WEEKLY 06/17/24 06/17/24 History Mcg = 74995 Iu)] Allergies Allergy/AdvReac Type Severity Reaction Status Date / Time No Known Allergies Allergy Verified 06/16/24 14:03
[2024-06-20] MEDS: IV FLUID CONTINUATION 1,000 ML IV ONE ×2 (09:54→13:44)
[2024-06-20 10:11] LABS: Glucose,Whole Blood 115 mg/dL (70-110)
[2024-06-20] MEDS: LACTATED RINGERS 1,000 ML IV SCH (10:18)
[2024-06-20] MEDS: DEXAMETHASONE SOD PHOSPHATE 4 MG/ML 1 ML VIAL IV ONE (10:18)
[2024-06-20] MEDS: ONDANSETRON 4 MG/2 ML VIAL IVP ONE (10:18)
[2024-06-20] MEDS: SCOPOLAMINE 1 MG/72 HR PATCH TRANSDERM ONE (10:18)
[2024-06-20] MEDS: HEPARIN SODIUM,PORCINE 5,000 UNIT/ML 1 ML VIAL SQ PRN (10:19)
[2024-06-20 10:28] LABS: Basophils # (A) 0.1 k/uL (0-0.2); Basophils % (A) 1 %; Eosinophils # (A) 0.3 k/uL (0-0.7); Eosinophils % (A) 2 %; HCT 43.2 % (34.0-46.0); HGB 14.6 gm/dL (11.4-16.0); Lymphocytes # (A) 2.6 k/uL (1.0-4.8); Lymphocytes % (A) 23 %; MCH 29.5 pg (25.0-35.0); MCHC 33.8 g/dL (31.0-37.0); MCV 87.1 fL (80.0-100.0); Mean Platelet Volume 7.9; Monocytes # (A) 0.6 k/uL (0-1.0); Monocytes % (A) 5 %; Neutrophils # (A) 7.9 k/uL (1.3-7.7); Neutrophils % (A) 67 %; Platelet Count 369 k/uL (150-450); RBC 4.96 m/uL (3.80-5.40); RDW 13.3 % (11.5-15.5); WBC 11.7 k/uL (3.8-10.6)
[2024-06-20 10:38] LABS: ALT 56 U/L (4-34); AST 27 U/L (14-36); African American GFR (CKD) >90 (>60 ml/min/1.73 sqM); Albumin 4.2 g/dL (3.5-5.0); Alkaline Phosphatase 102 U/L (38-126); Anion Gap 8 mmol/L; Blood Urea Nitrogen 12 mg/dL (7-17); Calcium 9.4 mg/dL (8.4-10.2); Carbon Dioxide 22 mmol/L (22-30); Chloride 106 mmol/L (98-107); Glucose 117 mg/dL (74-99); Non-African American GFR(CKD) >90 (>60 ml/min/1.73 sqM); Potassium 4.5 mmol/L (3.5-5.1); Sodium 136 mmol/L (137-145); Total Bilirubin 0.3 mg/dL (0.2-1.3); Total Protein 7.3 g/dL (6.3-8.2)
[2024-06-20] MEDS: ceFAZolin 3 GM in SODIUM CHLORIDE 0.9% 100 ML IVPB PRN (11:39)
[2024-06-20] MEDS: LIDOCAINE 1%-EPI 1:100,000 20 ML VIAL SQ ONE (11:55)
[2024-06-20 12:52] VITALS: TEMP 97.7
[2024-06-20 12:53] VITALS: RESP 16
--- NOTE | 2024-06-20 13:01 | P.OP ---
Date of Procedure: 06/20/24 Description of Procedure: SURGEON: CHARO GUILLEN MD PREOPERATIVE DIAGNOSES: 1. Acute cholecystitis 2. Right upper quadrant abdominal pain 3. Gastroesophageal reflux disease 4. Morbid obesity excess calories, BMI 45.0 5. Elevated liver enzymes 6. Hypertensive heart disease 7. Diabetes type 2 8. Hypothyroidism 9. Chronic pain syndrome 10. Polycystic ovarian syndrome 11. Tobacco abuse disorder 12. Depressive disorder POSTOPERATIVE DIAGNOSES: 1. Acute cholecystitis 2. Right upper quadrant abdominal pain 3. Gastroesophageal reflux disease with erosive esophagitis 4. Morbid obesity excess calories, BMI 45.0 5. Elevated liver enzymes 6. Hypertensive heart disease 7. Diabetes type 2 8. Hypothyroidism 9. Chronic pain syndrome 10. Polycystic ovarian syndrome 11. Tobacco abuse disorder 12. Depressive disorder 13. Fatty liver disease with cirrhosis of the liver, micronodular 14. Gastritis OPERATION: 1. Robotic-assisted da Kilo Xi laparoscopic cholecystectomy, multiport with FIREFLY 2. Intraoperative esophagogastroduodenoscopy with cold forcep biopsies (please see separate report) ESTIMATED BLOOD LOSS: 5 mL. SPECIMENS REMOVED: Gallbladder. COMPLICATIONS: None. OPERATIVE FINDINGS: 1. Moderate scarring over entire gallbladder with peritoneal adhesions, pericholecystic with features of chronic cholecystitis 2. Moderate severe fatty liver disease with hepatomegaly and early features of cirrhosis INDICATIONS: The patient is a 38-year-old female who presents with epigastric and right upper quadrant abdominal pain exacerbated after eating fatty foods and clinical cholecystitis. Patient presented with elevated liver enzymes including leukocytosis. Clinically features consistent with acute cholecystitis. Robotic assisted laparoscopic approach was described. Benefits and risks of the procedure including but not limited to bleeding, infection, injury to the biliary tree was described. Informed consent was obtained. DESCRIPTION OF PROCEDURE: Patient was brought to the operating room, placed in supine position. After general induction, the abdomen had been prepped and draped in standard sterile fashion. The robotic da Kilo XI system was primed. After a timeout protocol was performed, the patient had been prepped and draped in standard sterile fashion. The patient was injected with indocyanine green. A 5 mm 0 degrees laparoscopic trocar entry was performed along the left upper quadrant. The abdomen insufflated to 15 mmHg pressure which was tolerated well. Diagnostic laparoscopy demonstrated no injury to bowel viscera or mesentery. The liver surface demonstrated moderate yellow fatty deposits including hepatom egaly consistent with fatty liver disease including early cirrhosis, micronodular. Next, two 8 mm robotic ports were placed along the right upper abdomen. The camera 8-mm port was maintained along the epigastrium. Another 8 mm port was placed along the left upper abdominal wall after exchanging the 5 mm port. Please note that the ports were placed at least 10 to 15 cm away from the target anatomy of the gallbladder. The robot was docked along the left lateral abdomen. The patient was repositioned in reverse Trendelenburg position. Using a grasper for arm 1, a grasper for arm 4, including hook cautery for arm 3, the robotic system was docked and primed as described. Instruments were interchanged by the special education assistant including hook cautery, Bovie cautery and clip appliers. I had sat at the console. The gallbladder was scarred with peritoneal adhesions. Lysis of adhesions was performed to free the gallbladder from the surrounding tissues. Next attention was brought to the infundibulum and cystic structures. The infundibulum and cystic duct were dissected free from surrounding tissues. The cystic duct was isolated. FIREFLY was used to identify the cystic artery and cystic structures. A critical view of safety was obtained. Large PLASTIC clips were used throughout the entire case. Using a clip stock taker, 3 clips were placed at the junction of the infundibulum and cystic duct. The cystic duct was divided between clips. Next, the cystic artery was cauterized. Electro-Bovie cautery was used to remove the gallbladder from the hepatic fossa. Hemostasis was checked and found to be adequate. The robot was undocked. I re-scrubbed into the case. Using a 10 mm Endo Catch bag via the left upper quadrant incision, the specimen was removed from the abdominal cavity. All pneumoperitoneum instruments were evacuated from the abdominal cavity. The incisions were reapproximated using 4-0 Monocryl in an interrupted subcuticular fashion. Fascial defects were less than 8 mm in size. Please note along the trocar sites, local anesthetic was placed as a field block prior to insertion of all instruments. Liquid glue was applied to the skin. I went to the head of the bed to perform intraoperative esophagogastroduodenoscopy. Please see separate report. At the end of the procedure needle, sponge, and instrument count had been verified correct by the surgical services assistant. The patient was transferred to postanesthesia care unit in stable condition. Intraoperative films were shared with the patient's family. Plan - Discharge Summary Discharge Rx Participant: No New Discharge Prescriptions: Continue Gabapentin 400 mg PO BID Omeprazole [PriLOSEC] 40 mg PO BID Ergocalciferol [Vitamin D2 (1250 Mcg = 51957 Iu)] 50,000 unit PO WEEKLY Levothyroxine Sodium [Synthroid] 50 mcg PO DAILY Cyclobenzaprine [Flexeril] 10 mg PO BID norgestimate-ethinyl estradioL [[place] 0.25-0.035 mg Tablet] 1 each PO DAILY lisinopriL 40 mg PO DAILY OLANZapine [ZyPREXA] 15 mg PO HS HYDROcodone/APAP 5-325MG [[place] 5-325] 1 tab PO BID PRN PRN Reason: Pain Tirzepatide [Mounjaro] 2.5 mg SQ GOMEZ hydroCHLOROthiazide [Hydrodiuril] 12.5 mg PO DAILY Discharge Medication List Cyclobenzaprine [Flexeril] 10 mg PO BID 02/24/22 [History] Gabapentin 400 mg PO BID 02/24/22 [History] Levothyroxine Sodium [Synthroid] 50 mcg PO DAILY 02/24/22 [History] Omeprazole [PriLOSEC] 40 mg PO BID 02/24/22 [History] norgestimate-ethinyl estradioL [[place] 0.25-0.035 mg Tablet] 1 each PO DAILY 02/24/22 [History] OLANZapine [ZyPREXA] 15 mg PO HS 01/29/23 [History] lisinopriL 40 mg PO DAILY 01/29/23 [History] HYDROcodone/APAP 5-325MG [[place] 5-325] 1 tab PO BID PRN 06/15/24 [History] Tirzepatide [Mounjaro] 2.5 mg SQ GOMEZ 06/15/24 [History] hydroCHLOROthiazide [Hydrodiuril] 12.5 mg PO DAILY 06/16/24 [History] Ergocalciferol [Vitamin D2 (1250 Mcg = 71897 Iu)] 50,000 unit PO WEEKLY 06/17/24 [History] Follow up Appointment(s)/Referral(s): Charo Guillen MD [STAFF PHYSICIAN] - 06/29/24 3:00 pm Patient Instructions/Handouts: *Surgery [facility] - Scopalamine Patch Instructions, Cholecystitis (ED), Laparoscopic Cholecystectomy (GEN), Low Fat Diet (DC), Cirrhosis (DC) Activity/Diet/Wound Care/Special Instructions: NO LONG DRIVES OR AIRPLANE RIDES OVER 60 MINUTES FOR THE NEXT 2 WEEKS 07/04/24, DUE TO HIGH RISK OF PULMONARY EMBOLISM/DVTs May drive in 48 hrs, 06/22/24 Recommend low-fat diet for the next 2 days. No lifting over 10 pounds in 2 weeks until 07/04/24 May shower. No bath tub soaks for two weeks 07/04/24 Diet as tolerated. Use Tylenol, simethicone and ibuprofen or Aleve scheduled for the next 24-48 hours for best pain relief. Use ice along incisions for today to prevent swelling. Discharge Disposition: HOME SELF-CARE
--- NOTE | 2024-06-20 13:03 | P.PCN ---
Date of Procedure: 06/20/24 Description of Procedure: PREOPERATIVE DIAGNOSIS: Gastroesophageal reflux disease. Morbid obesity. POSTOPERATIVE DIAGNOSIS: Gastroesophageal reflux disease. Morbid obesity. Gastritis. OPERATION: Esophagogastroduodenoscopy with cold forceps biopsies along esophagus, antrum and duodenum SURGEON: Charo Guillen MD ANESTHESIA: General Endotracheal intubation. INDICATIONS: The patient is a 38-year-old female who presents with reflux disease. Benefits and risks of the procedure were described. Informed consent was obtained. DESCRIPTION: After completion of cholecystectomy I went to the head of the bed. An Olympus gastroscope was passed along the posterior oropharynx down to the distal esophagus where the squamocolumnar junction was encountered at 40 cm from the incisors. The stomach was entered and bile reflux was found. Additional findings are listed below. Biopsies with cold forceps were obtained of the antrum. The first through third portion of the duodenum was examined. Retroflexion of the scope confirmed Hill grade 3 lower esophageal valve. The squamocolumnar junction demonstrated LA grade B erosive esophagitis. The stomach was desufflated. The patient tolerated the procedure well. FINDINGS: Squamocolumnar junction 40 cm from the incisors. Diaphragmatic hiatus at 40 cm. Hill grade 3 lower esophageal valve. LA grade B erosive esophagitis. Presence of moderate bile reflux. Biopsies obtained Biopsies obtained of the duodenum. Chronic gastritis with biopsies obtained. RECOMMENDATIONS: Upper endoscopy as needed.
[2024-06-20 13:09] LABS: Glucose,Whole Blood 159 mg/dL (70-110)
[2024-06-20] MEDS: HYDROmorphone 0.5 MG/0.5 ML SYRINGE IVP PRN (13:11)
[2024-06-20 14:10] VITALS: BP 145/68; PULSE 87
== END | disposition home or self-care (01) ==
LOC: OR 09:27
PROVIDERS: ATTEND Surgery Plastic and Reconstructive Surgery
DX: K80.12 Calculus of gallbladder with acute and chronic cholecystitis without obstruction (principal); K29.50 Unspecified chronic gastritis without bleeding; K21.00 Gastro-esophageal reflux disease with esophagitis, without bleeding; K76.0 Fatty (change of) liver, not elsewhere classified; K74.60 Unspecified cirrhosis of liver; I11.9 Hypertensive heart disease without heart failure; E11.9 Type 2 diabetes mellitus without complications; E03.9 Hypothyroidism, unspecified; E28.2 Polycystic ovarian syndrome; F32.A Depression, unspecified; E78.5 Hyperlipidemia, unspecified; E66.01 Morbid (severe) obesity due to excess calories; F17.200 Nicotine dependence, unspecified, uncomplicated; Z68.42 Body mass index [BMI] 45.0-49.9, adult; Z79.890 Hormone replacement therapy; Z79.899 Other long term (current) drug therapy
CPT/HCPCS: 47562; S2900; 80053; 81025; 85025; 88304; 88305

== ENCOUNTER → 2024-06-29 | Outpatient (CLI) | payer OTHER ==
[2024-06-29 10:18] VITALS: BP 137/93; RESP 16; TEMP 98.3; BMI 44.1
[2024-06-29 10:19] VITALS: PULSE 101
--- NOTE | 2024-06-29 10:42 | P.BASOAP ---
Subjective Progress Note Date: 06/29/24 CHIEF COMPLAINT: Morbid obesity HISTORY OF PRESENT ILLNESS: The patient is a 38-year-old female with morbid obesity who comes in status post cholecystectomy 06/20/2024. She reports persistent reflux have improved. She did have a rash from her surgery from surgical dressing that is resolving. No increased abdominal pain. At her height of 5 foot 7.25 inches, her ideal body weight is 150 pounds. Her initial weight at the bariatric center was 285 pounds, body mass index 44.5. Today she comes in 284 pounds. She is lost 1 pound in 2 weeks. She still reports smoking. ROS: No reports of nausea and vomiting. No bowel movements. No fevers or chills. No new chest pain. No productive sputum PHYSICAL EXAM: VITAL SIGNS: Reviewed CONSTITUTIONAL: Well developed and in no acute distress. EYES: Conjuctivae without sclera icterus. Extraocular movements grossly intact. HEAD, EARS, NOSE, THROAT: Moist buccal mucosa. Head is atraumatic, normocephalic. Hears conversational speech. No nasal drainage. RESPIRATORY: Non-labored respirations and equal bilateral excursions. CARDIOVASCULAR: Palpable 2+ radial pulses. ABDOMEN: Incisions granulated. No infection. Resolving ecchymosis along the left upper quadrant incision. MUSCULOSKELETAL: No gross deformity of the lower extremities noted. No clubbing. No cyanosis. SKIN: Good skin turgor. Well perfused. NEUROLOGIC: Cranial nerves II through XII grossly intact. No focal or lateralizing signs. PSYCH: Appropriate affect. Alert and oriented to person, place and time. CLINICAL LABS: Reviewed. Vitamin D low. WBC was elevated. LFTs was elevated. PATHOLOGY: Review consistent with cholecystitis with gallstones. No presence of celiac disease, H. pylori or Sanders's esophagus. ASSESSMENT: 1. Morbid obesity excess calories, BMI 44.1 2. Symptomatic gallstones status post cholecystectomy 3. Chronic tobacco abuse disorder 4. Vitamin D deficiency 5. Fatty liver disease 6. History of elevated LFTs 7. Gastroesophageal reflux disease PLAN: 1. Strict tobacco cessation counseling described where last nicotine product takes 4 weeks to resolve from her system. 2. Alternative to an acids include yogurt particular [place]ian yogurt daily 3. Patient to follow-up after nicotine cessation Dictation was produced using [employer] software. Please excuse any grammatical, word or spelling errors. Objective - Vital Signs Vital signs: Vital Signs Temp 98.3 F 06/29/24 10:08 Pulse 101 H 06/29/24 10:08 Resp 16 06/29/24 10:08 BP 137/93 06/29/24 10:08 Pulse Ox FiO2 Intake & Output 06/28/24 06/29/24 06/29/24 18:59 06:59 18:59 Weight 128.82 kg Assessment/Plan Plan: Date: 06/29/24 Initial Weight: 129.444 kg Initial BMI: 44.4 Current Weight: 128.82 kg Current BMI: 44.1 Type of Surgery: Total Volume in Band: Previous Volume: Volume Removed: Volume Added: Band Size:
== END ==
LOC: BARWHC3 09:55
PROVIDERS: ATTEND Surgery Plastic and Reconstructive Surgery
DX: E66.01 Morbid (severe) obesity due to excess calories (principal); Z68.41 Body mass index [BMI] 40.0-44.9, adult; K76.0 Fatty (change of) liver, not elsewhere classified; E55.9 Vitamin D deficiency, unspecified; K21.9 Gastro-esophageal reflux disease without esophagitis; F12.90 Cannabis use, unspecified, uncomplicated; F17.210 Nicotine dependence, cigarettes, uncomplicated; Z91.048 Other nonmedicinal substance allergy status; Z90.49 Acquired absence of other specified parts of digestive tract; Z86.39 Personal history of other endocrine, nutritional and metabolic disease
CPT/HCPCS: 99211